=== PATIENT | male | born 1945 | race Caucasian/White ===

== ENCOUNTER → 2017-01-16 | Outpatient (CLI) | payer MEDICARE, BC ==
[2011-03-20 08:19] VITALS: BP 176/101
[~2017-01-16] MED LIST: ALLOPURINOL300 MG PO; LORTAB 5/500 501 TAB; MELOXICAM; ST. JOSEPH81 M2 PO; ZIAC 10 MG-6.251 TAB PO
[2017-01-16 08:38] LABS: ALBUMIN 4.2 g/dL (3.5-5.0); BUN/CREATININE RATIO 23.4 (6.0-26.0); CALCIUM 9.3 mg/dL (8.4-10.2); POTASSIUM 4.1 mmol/L (3.6-5.0); TOTAL BILIRUBIN 0.7 mg/dL (0.2-1.3); TOTAL PROTEIN 7.3 g/dL (6.3-8.2)
== END ==
LOC: LAB 08:04
PROVIDERS: Family Medicine
DX: E11.9 Type 2 diabetes mellitus without complications (principal); I10 Essential (primary) hypertension; E78.5 Hyperlipidemia, unspecified; M10.9 Gout, unspecified

== ENCOUNTER → 2017-04-27 | Outpatient (CLI) | payer MEDICARE, BC ==
[2011-03-20 08:19] VITALS: BP 176/101
== END ==
LOC: LAB 09:49
PROVIDERS: Family Medicine
DX: E11.9 Type 2 diabetes mellitus without complications (principal); Z12.5 Encounter for screening for malignant neoplasm of prostate; I10 Essential (primary) hypertension; E78.5 Hyperlipidemia, unspecified; M10.9 Gout, unspecified; Z88.8 Allergy status to other drugs, medicaments and biological substances

== ENCOUNTER → 2017-07-27 | Outpatient (CLI) | payer MEDICARE, BC ==
[2011-03-20 08:19] VITALS: BP 176/101
== END ==
LOC: LAB 09:50
DX: E11.9 Type 2 diabetes mellitus without complications (principal)

== ENCOUNTER → 2018-01-28 | Outpatient (CLI) | payer MEDICARE, BC ==
[2011-03-20 08:19] VITALS: BP 176/101
[2018-01-28 10:56] LABS: ALBUMIN 4.4 g/dL (3.5-5.0); CALCIUM 9.7 mg/dL (8.4-10.2); POTASSIUM 4.6 mmol/L (3.6-5.0); TOTAL PROTEIN 7.1 g/dL (6.3-8.2)
[2018-01-28 12:17] LABS: URINE APPEARANCE CLEAR; URINE BILIRUBIN NEGATIVE (NEGATIVE); URINE BLOOD NEGATIVE (NEGATIVE); URINE COLOR YELLOW; URINE GLUCOSE NEGATIVE (NEGATIVE); URINE KETONE NEGATIVE (NEGATIVE); URINE LEUKOCYTE ESTERASE NEGATIVE (NEGATIVE); URINE NITRATE NEGATIVE (NEGATIVE); URINE PROTEIN(semi-quant) NEGATIVE (NEGATIVE); URINE UROBILINOGEN NORMAL (NORMAL); URINE WBC 0-1 /hpf (0-3)
== END ==
LOC: RAD 09:39
PROVIDERS: Family Medicine
DX: R35.8 Other polyuria (principal); R14.0 Abdominal distension (gaseous); E11.9 Type 2 diabetes mellitus without complications; I10 Essential (primary) hypertension; E78.5 Hyperlipidemia, unspecified; G62.9 Polyneuropathy, unspecified

== ENCOUNTER → 2018-05-06 | Outpatient (CLI) | payer MEDICARE, BC ==
[2011-03-20 08:19] VITALS: BP 176/101
== END ==
LOC: RAD 15:15
DX: M50.322 Other cervical disc degeneration at C5-C6 level (principal); W19.XXXA Unspecified fall, initial encounter; M47.814 Spondylosis without myelopathy or radiculopathy, thoracic region

== ENCOUNTER → 2018-11-20 | Outpatient (CLI) | payer MEDICARE, BC ==
[2011-03-20 08:19] VITALS: BP 176/101
[2018-11-20 09:54] LABS: ALBUMIN 3.9 g/dL (3.4-4.8); POTASSIUM 4.2 mmol/L (3.5-5.1)
[2018-11-20 09:55] LABS: CALCIUM 9.2 mg/dL (8.3-10.5)
[2018-11-20 09:56] LABS: TOTAL PROTEIN 6.7 g/dL (6.2-8.1)
[2018-11-20 09:58] LABS: TOTAL BILIRUBIN 0.7 mg/dL (0.2-1.2)
== END ==
LOC: LAB 09:04
PROVIDERS: Family Medicine
DX: I10 Essential (primary) hypertension (principal); E11.9 Type 2 diabetes mellitus without complications; M48.061 Spinal stenosis, lumbar region without neurogenic claudication; N40.0 Benign prostatic hyperplasia without lower urinary tract symptoms; E78.5 Hyperlipidemia, unspecified; G89.29 Other chronic pain; Z86.73 Personal history of transient ischemic attack (TIA), and cerebral infarction without residual deficits

== ENCOUNTER → 2019-01-30 | Outpatient (CLI) | payer MEDICARE, BC ==
[2011-03-20 08:19] VITALS: BP 176/101
[2019-01-30 09:05] LABS: POTASSIUM 4.4 mmol/L (3.5-5.1)
[2019-01-30 09:07] LABS: CALCIUM 9.4 mg/dL (8.3-10.5)
[2019-01-30 09:08] LABS: TOTAL PROTEIN 6.6 g/dL (6.2-8.1)
[2019-01-30 09:44] LABS: EOS # 0.1 (0.04-0.40); EOS % 1.6 % (0.0-4.0); HEMATOCRIT 45.4 % (42.0-52.0); LYMPH# 2.1 (1.50-4.00); MEAN CELL VOLUME 90 fl (78-100); MEAN CORPUSCULAR HEMOGLOBIN 30 pg (27-31); MEAN CORPUSCULAR HGB CONC 33 g/dL (33-37); MEAN PLATELET VOLUME 9.7 fl (7.4-10.4); MONO # 0.5 (0.20-0.80); NEU # 3.4 (1.40-6.50); PLATELET COUNT 182 K/mm3 (130-400); RED BLOOD COUNT 5.02 M/mm3 (4.20-5.60); RED CELL DISTRIBUTION WIDTH 12.6 % (11.5-14.5); WHITE BLOOD COUNT 6.1 K/mm3 (4.8-10.8)
== END ==
LOC: AMSURD 08:40
PROVIDERS: Family Medicine
DX: Z01.812 Encounter for preprocedural laboratory examination (principal); Z01.818 Encounter for other preprocedural examination

== ENCOUNTER → 2019-02-07 | Outpatient (CLI) | payer MEDICARE, BC ==
[2011-03-20 08:19] VITALS: BP 176/101
== END ==
LOC: CARDREHAB 07:18
DX: E11.9 Type 2 diabetes mellitus without complications (principal); I10 Essential (primary) hypertension; E78.5 Hyperlipidemia, unspecified; F51.04 Psychophysiologic insomnia; M48.061 Spinal stenosis, lumbar region without neurogenic claudication
CPT/HCPCS: A9500

== ENCOUNTER 2020-03-26 13:21 | Emergency (ER) | payer MEDICARE, BC ==
[~2020-03-26] VITALS: Ht 177.8 cm; Wt 131.8 kg
[2020-03-26 14:45] LABS: EOS # 0.1 (0.04-0.40); EOS % 1.2 % (0.0-4.0); HEMATOCRIT 46.4 % (42.0-52.0); HEMOGLOBIN 15.5 g/dL (13.5-18.0); LYMPH# 1.9 (1.50-4.00); MEAN CELL VOLUME 92 fl (78-100); MEAN CORPUSCULAR HEMOGLOBIN 31 pg (27-31); MEAN CORPUSCULAR HGB CONC 33 g/dL (33-37); MONO # 0.5 (0.20-0.80); NEU # 3.9 (1.40-6.50); PLATELET COUNT 178 K/mm3 (130-400); RED BLOOD COUNT 5.03 M/mm3 (4.20-5.60); RED CELL DISTRIBUTION WIDTH 12.5 % (11.5-14.5); WHITE BLOOD COUNT 6.5 K/mm3 (4.8-10.8)
[2020-03-26 14:48] LABS: ALBUMIN 4.1 g/dL (3.4-4.8)
[2020-03-26 14:49] LABS: POTASSIUM 4.1 mmol/L (3.5-5.1); SODIUM 139 mmol/L (136-145)
[2020-03-26 14:50] LABS: CALCIUM 8.9 mg/dL (8.3-10.5)
[2020-03-26 14:51] LABS: GLUCOSE 119 mg/dL (75-110); TOTAL PROTEIN 6.8 g/dL (6.2-8.1)
[2020-03-26 14:52] LABS: CARBON DIOXIDE 24 mmol/L (23-31)
[2020-03-26 14:53] LABS: TOTAL BILIRUBIN 0.7 mg/dL (0.2-1.2)
[2020-03-26 14:56] LABS: AST-SGOT 21 U/L (5-34)
[2020-03-26 14:57] LABS: ALT/SGPT 23 U/L (0-55)
[2020-03-26 15:05] LABS: TROPONIN-I < 0.03 ng/mL (<0.030)
[2020-03-26] MEDS ORDERED: PROPRANOLOL HCL40 M2 PO (15:58)
[2020-03-26] MEDS ORDERED: AMLODIPINE BESYL5 MG PO (17:08)
[2020-03-26 18:14] VITALS: BP 152/100
== END 2020-03-26 18:15 | disposition home or self-care (01) ==
LOC: ED 13:21
PROVIDERS: Nurse Practitioner
DX: I10 Essential (primary) hypertension (principal); Z79.82 Long term (current) use of aspirin

== ENCOUNTER → 2020-05-27 | Outpatient (CLI) | payer MEDICARE, BC ==
[~2020-05-27] MED LIST changes: +AMLODIPINE BESYL5 MG PO; +PROPRANOLOL HCL40 M2 PO
== END ==
LOC: LAB 08:50
DX: N40.0 Benign prostatic hyperplasia without lower urinary tract symptoms (principal); E11.9 Type 2 diabetes mellitus without complications

== ENCOUNTER → 2020-11-26 | Outpatient (CLI) | payer MEDICARE, BC | LOC: LAB 09:35 | DX: E11.9 Type 2 diabetes mellitus without complications (principal) ==

== ENCOUNTER → 2020-12-14 | Outpatient (CLI) | payer MEDICARE, BC | LOC: LAB 08:04 | DX: R06.02 Shortness of breath (principal); R43.9 Unspecified disturbances of smell and taste; R53.83 Other fatigue; R09.81 Nasal congestion; Z20.822 Contact with and (suspected) exposure to COVID-19 ==

== ENCOUNTER → 2021-01-10 | Outpatient (CLI) | payer MEDICARE, BC ==
[2021-01-10 09:37] LABS: BASO # 0.04 K/mm3 (0.02-0.10); EOS # 0.18 K/mm3 (0.04-0.40); EOS % 2.4 % (0.0-4.0); HEMATOCRIT 48.3 % (42.0-52.0); LYMPH# 2.29 K/mm3 (1.50-4.00); MEAN CELL VOLUME 93 fl (78-100); MEAN CORPUSCULAR HEMOGLOBIN 31 pg (27-31); MEAN CORPUSCULAR HGB CONC 33 g/dL (33-37); MEAN PLATELET VOLUME 9.6 fl (7.4-10.4); MONO # 0.67 K/mm3 (0.20-0.80); NEU # 4.16 K/mm3 (1.40-6.50); PLATELET COUNT 209 K/mm3 (130-400); RED BLOOD COUNT 5.21 M/mm3 (4.20-5.60); RED CELL DISTRIBUTION WIDTH 12.2 % (11.5-14.5); WHITE BLOOD COUNT 7.4 K/mm3 (4.8-10.8)
[2021-01-10 09:44] LABS: POTASSIUM 4.6 mmol/L (3.5-5.1)
[2021-01-10 09:45] LABS: CALCIUM 9.5 mg/dL (8.3-10.5)
[2021-01-10 10:32] LABS: PROTHROMBIN TIME 10.4 SECONDS (9.0-12.0)
[2021-01-13 09:48] LABS: URINE APPEARANCE CLEAR; URINE BILIRUBIN NEGATIVE (NEGATIVE); URINE BLOOD NEGATIVE (NEGATIVE); URINE COLOR YELLOW; URINE GLUCOSE NEGATIVE (NEGATIVE); URINE KETONE NEGATIVE (NEGATIVE); URINE LEUKOCYTE ESTERASE NEGATIVE (NEGATIVE); URINE NITRATE NEGATIVE (NEGATIVE); URINE PROTEIN(semi-quant) NEGATIVE (NEGATIVE); URINE UROBILINOGEN NORMAL (NORMAL); URINE WBC 0-1 /hpf (0-3)
[2021-01-13 09:49] LABS: URINE MUCUS PRESENT (NOT PRESENT)
== END ==
LOC: AMSURD 08:39
PROVIDERS: Family Medicine
DX: M21.41 Flat foot [pes planus] (acquired), right foot (principal); M20.40 Other hammer toe(s) (acquired), unspecified foot; Z20.822 Contact with and (suspected) exposure to COVID-19

== ENCOUNTER → 2021-03-02 | Outpatient (CLI) | payer MEDICARE, BC | LOC: LAB 07:49 | DX: E78.2 Mixed hyperlipidemia (principal) ==

== ENCOUNTER → 2021-06-06 | Outpatient (CLI) | payer MEDICARE, BC ==
[2021-06-06 09:57] LABS: HEMATOCRIT 45.6 % (42.0-52.0); HEMOGLOBIN 15.2 g/dL (13.5-18.0); MEAN PLATELET VOLUME 9.6 fl (7.4-10.4); RED BLOOD COUNT 4.93 M/mm3 (4.20-5.60); RED CELL DISTRIBUTION WIDTH 12.4 % (11.5-14.5); WHITE BLOOD COUNT 5.5 K/mm3 (4.8-10.8)
[2021-06-06 10:22] LABS: POTASSIUM 4.3 mmol/L (3.5-5.1)
[2021-06-06 10:23] LABS: ALBUMIN 4.3 g/dL (3.4-4.8)
[2021-06-06 10:24] LABS: CALCIUM 9.4 mg/dL (8.3-10.5)
[2021-06-06 10:25] LABS: TOTAL PROTEIN 7.2 g/dL (6.2-8.1)
[2021-06-06 10:27] LABS: TOTAL BILIRUBIN 0.7 mg/dL (0.2-1.2)
== END ==
LOC: LAB 08:45
PROVIDERS: Family Medicine
DX: I10 Essential (primary) hypertension (principal); F41.8 Other specified anxiety disorders; E78.2 Mixed hyperlipidemia; E11.9 Type 2 diabetes mellitus without complications; N40.0 Benign prostatic hyperplasia without lower urinary tract symptoms

== ENCOUNTER → 2022-01-11 | Outpatient (CLI) | payer MEDICARE, BC ==
[2022-01-11 07:44] LABS: ALBUMIN 4.2 g/dL (3.4-4.8); POTASSIUM 4.7 mmol/L (3.5-5.1)
[2022-01-11 07:45] LABS: CALCIUM 9.3 mg/dL (8.3-10.5)
[2022-01-11 07:46] LABS: TOTAL PROTEIN 7.2 g/dL (6.2-8.1)
[2022-01-11 07:48] LABS: TOTAL BILIRUBIN 0.7 mg/dL (0.2-1.2)
== END ==
LOC: LAB 07:25
PROVIDERS: Family Medicine
DX: I10 Essential (primary) hypertension (principal); E78.2 Mixed hyperlipidemia; E11.9 Type 2 diabetes mellitus without complications; F41.8 Other specified anxiety disorders

== ENCOUNTER → 2023-04-06 | Outpatient (CLI) | payer MEDICARE, BC ==
[2023-04-06 12:01] LABS: CALCIUM 9.5 mg/dL (8.3-10.5)
== END ==
LOC: LAB 09:11
PROVIDERS: Family Medicine
DX: I10 Essential (primary) hypertension (principal); F41.8 Other specified anxiety disorders; E11.42 Type 2 diabetes mellitus with diabetic polyneuropathy